=== PATIENT | male | born 1955 | race Caucasian/White ===

== ENCOUNTER 2020-07-10 07:55 | Outpatient (CLI) | payer OTHER ==
[~2020-07-10 07:55] MED LIST: ASPI-650 PO; ATOR40TA78 PO; BISA10SU65 PR; ERGO500017 PO; GABA-826 PO; GABA300C10 PO; OMEP40CA42 PO; POLY17PO5 PO; SENN-177 PO
== END 2020-07-10 23:59 | disposition home or self-care (01) ==
LOC: ROC 07:55
PROVIDERS: ATTEND Radiology Radiation Oncology
DX: Z02.9 Encounter for administrative examinations, unspecified (principal)

== ENCOUNTER 2020-07-31 07:45 | Outpatient (CLI) | payer OTHER | END 2020-07-31 23:59 | disposition home or self-care (01) | LOC: ROC 07:45 | PROVIDERS: ATTEND Radiology Radiation Oncology | DX: C61 Malignant neoplasm of prostate (principal); F41.9 Anxiety disorder, unspecified; F31.9 Bipolar disorder, unspecified; E11.9 Type 2 diabetes mellitus without complications; K21.9 Gastro-esophageal reflux disease without esophagitis; Z86.73 Personal history of transient ischemic attack (TIA), and cerebral infarction without residual deficits | CPT/HCPCS: 99214; G0463 ==

== ENCOUNTER 2020-09-11 07:13 | Outpatient (CLI) | payer OTHER ==
[~2020-09-11 07:13] MED LIST changes: -ASPI-650 PO; +ASPI325T20 PO
== END 2020-09-11 23:59 | disposition home or self-care (01) ==
LOC: ROC 07:13
PROVIDERS: ATTEND Radiology Radiation Oncology
DX: Z08 Encounter for follow-up examination after completed treatment for malignant neoplasm (principal); Z85.46 Personal history of malignant neoplasm of prostate; F41.9 Anxiety disorder, unspecified; F31.9 Bipolar disorder, unspecified; K21.9 Gastro-esophageal reflux disease without esophagitis; E11.9 Type 2 diabetes mellitus without complications
CPT/HCPCS: 99212; G0463

== ENCOUNTER 2020-09-25 07:18 | Outpatient (CLI) | payer OTHER | END 2020-09-25 23:59 | disposition home or self-care (01) | LOC: ROC 07:18 | PROVIDERS: ATTEND Radiology Radiation Oncology | DX: Z08 Encounter for follow-up examination after completed treatment for malignant neoplasm (principal); Z85.46 Personal history of malignant neoplasm of prostate; F41.9 Anxiety disorder, unspecified; F31.9 Bipolar disorder, unspecified; K21.9 Gastro-esophageal reflux disease without esophagitis; E11.9 Type 2 diabetes mellitus without complications | CPT/HCPCS: 99212; G0463 ==

== ENCOUNTER 2021-01-05 19:54 | Inpatient (IN) | payer OTHER ==
[~2021-01-05] VITALS: Ht 180.3 cm; Wt 52.4 kg
[~2021-01-05 19:54] MED LIST changes: -OMEP40CA42 PO; +OMEP40CA8 PO
[2021-01-05] MEDS ORDERED: OMNIPAQUE 350 MG/ML, 100ML BOTTLE ONE (20:00)
--- NOTE | 2021-01-05 20:08 | NUR ---
Code Neuro called @ 1937 Called Neurology @ 2000 Neurology called back @ 2005
--- NOTE | 2021-01-05 20:20 | NUR ---
PT SPEECH IMPROVED AFTER CT SCAN. ERMD AWARE. VSS.
[2021-01-05 20:29] LABS: BASOPHILS % (AUTO) 1 % (0-1); EOSINOPHILS % (AUTO) 5 % (1-7); LYMPHOCYTES % (AUTO) 25 % (22-44); MEAN CORPUSCULAR HEMOGLOBIN 28.4 pg (27.5-34.5); MEAN CORPUSCULAR HGB CONC 33.6 g/dL (33.2-36.2); MEAN PLATELET VOLUME 6.8 fL (7.4-10.4); MONOCYTES % (AUTO) 14 % (2-9); NEUTROPHILS % (AUTO) 55 % (42-75); PLATELET COUNT 269 x10^3/uL (130-400); RED BLOOD COUNT 4.01 x10^6/uL (4.38-5.82); RED CELL DISTRIBUTION WIDTH 13.2 % (9.4-14.8)
[2021-01-05 20:38] LABS: ALBUMIN 2.9 g/dL (3.4-5.0); ANION GAP 7 mmol/L (5-15); CALCIUM 8.5 mg/dL (8.5-10.1); CHLORIDE 102 mmol/L (98-107); CREATININE 0.56 mg/dL (0.7-1.3)
[2021-01-05 20:39] LABS: INTERNATIONAL NORMALIZED RATIO 1.09 (0.93-1.1); PROTHROMBIN TIME 11.6 Seconds (9.6-11.5)
[2021-01-05 20:41] LABS: TROPONIN I < 0.015 ng/mL (0.000-0.045)
--- NOTE | 2021-01-05 20:45 | NUR ---
PT TOLD RN THAT HE IS CURRENTLY [facility].
--- NOTE | 2021-01-05 20:53 | NUR ---
report from judith lynn
--- NOTE | 2021-01-05 21:05 | NUR ---
pt pleasent, cooperative and resting on gurney. no acute distress. watching tv. Attached to all monitors with stable VS
--- NOTE | 2021-01-05 22:00 | NUR ---
PT REPORTS HE HAS BEEN ON A SOFT FOOD/THICKENED LIQUID DIET FOR 5 YEARS WITH A HX OF DIFFICULTY SWALLOWING. FOR THIS REASON I HAVE NOT CONDUCTED A SWALLOW TEST.
--- NOTE | 2021-01-05 22:21 | NUR ---
REPORT TO BRANDEE KENT
[2021-01-05 22:40] VITALS: BP 131/79
[2021-01-05] MEDS ORDERED: ATORVASTATIN 40 MG TABLET PO SCH (23:30)
[2021-01-05] MEDS ORDERED: BISACODYL 10 MG SUPP PR PRN (23:30)
[2021-01-05] MEDS ORDERED: ONDANSETRON 4 MG TABLET PO PRN (23:30)
[2021-01-05] MEDS ORDERED: ACETAMINOPHEN 650 MG/20.3 ML UDC PO PRN (23:30)
[2021-01-05] MEDS: GABAPENTIN 300 MG CAPSULE PO SCH (23:50)
[2021-01-05] MEDS: DOCUSATE 100 MG CAPSULE PO PRN (23:50)
[2021-01-05] MEDS: OMEPRAZOLE 20 MG CAPSULE.DR PO SCH (23:50)
[2021-01-05] MEDS: OXYcodone 5 MG/5 ML ORAL.SOL UDC PO PRN (23:51)
[2021-01-06] VITALS (9 sets, daily range): BP systolic 103–127; BP diastolic 65–76
[2021-01-06 05:44] LABS: CHOL/HDL RATIO 4.3; LDL/HDL RATIO 2.7 (0.5-3.0)
[2021-01-06] MEDS: OXYcodone 5 MG/5 ML ORAL.SOL UDC PO PRN ×2 (09:21→20:30)
[2021-01-06] MEDS: ASPIRIN 81 MG TABLET CHEW PO/NG SCH (09:22)
[2021-01-06] MEDS: GABAPENTIN 300 MG CAPSULE PO SCH ×3 (09:22→20:24)
[2021-01-06] MEDS ORDERED: MORPHINE SULFATE 4 MG/ML, 1ML IVPush PRN (10:00)
[2021-01-06] MEDS ORDERED: ONDANSETRON 2MG/ML, 2ML IVPush PRN (10:00)
[2021-01-06 12:24] LABS: ALANINE AMINOTRANSFERASE 22 U/L (12-78)
[2021-01-06 12:26] LABS: ALKALINE PHOSPHATASE 106 U/L (45-117); BILIRUBIN, DIRECT < 0.1 mg/dL (0.1-0.2); BILIRUBIN,INDIRECT 0.2 mg/dL (0.0-2.0); BILIRUBIN,TOTAL 0.3 mg/dL (0.2-1.0); TOTAL PROTEIN 7.1 g/dL (6.4-8.2)
[2021-01-06] MEDS: PROCHLORPERAZINE 5 MG/ML, 2ML IVPush PRN ×2 (12:26→16:20)
[2021-01-06] MEDS: KETOROLAC 30 MG/1 ML IVPush PRN ×2 (12:26→16:20)
[2021-01-06] MEDS: DIPHENHYDRAMINE 50 MG/ML, 1ML IVPush PRN ×2 (12:27→16:20)
[2021-01-06] MEDS ORDERED: LORazepam 2 MG/ML, 1ML ONE (17:17)
[2021-01-06] MEDS ORDERED: LORazepam 2 MG/ML, 1ML IVPush ONE (17:30)
[2021-01-06] MEDS: ATORVASTATIN 20 MG TABLET PO SCH (20:24)
[2021-01-06] MEDS: OMEPRAZOLE 20 MG CAPSULE.DR PO SCH (20:24)
[2021-01-06] MEDS: POLYETHYLENE GLYCOL 17 GM PACKET PO PRN (20:24)
[2021-01-07 00:55] VITALS: BP 100/65
[2021-01-07 07:30] VITALS: BP 119/77
[2021-01-07] MEDS: ASPIRIN 81 MG TABLET CHEW PO/NG SCH (09:41)
[2021-01-07] MEDS: POLYETHYLENE GLYCOL 17 GM PACKET PO PRN (09:41)
[2021-01-07] MEDS: GABAPENTIN 300 MG CAPSULE PO SCH ×3 (09:41→19:42)
[2021-01-07] MEDS: DOCUSATE 100 MG CAPSULE PO PRN (09:41)
[2021-01-07 12:15] VITALS: BP 103/79
[2021-01-07] MEDS ORDERED: PROPOFOL 10 MG/ML, 20ML ONE (19:00)
[2021-01-07] MEDS ORDERED: FENTANYL PF 250 MCG/5ML ONE (19:01)
[2021-01-07] MEDS ORDERED: PROMETHAZINE 25 MG/ML, 1ML IVPush PRN (19:30)
[2021-01-07] MEDS ORDERED: HYDROmorphone 1 MG/ML, 1ML INJ IVPush PRN (19:30)
[2021-01-07] MEDS ORDERED: ONDANSETRON 2MG/ML, 2ML IVPush PRN (19:30)
[2021-01-07] MEDS ORDERED: MEPERIDINE/PF 25MG/0.5ML IVPush PRN (19:30)
[2021-01-07] MEDS ORDERED: FENTANYL PF 100 MCG/2ML IV PRN (19:30)
[2021-01-07] MEDS ORDERED: ACETAMINOPHEN 325 MG TABLET PO PRN (19:30)
[2021-01-07] MEDS ORDERED: LABETALOL 5MG/ML, 20ML IV PRN (19:30)
[2021-01-07] MEDS ORDERED: hydrALAzine 20 MG/ML, 1ML IV PRN (19:30)
[2021-01-07] MEDS ORDERED: OXYcodone 5 MG/5 ML ORAL.SOL UDC PO PRN (19:30)
[2021-01-07] MEDS ORDERED: MIDAZOLAM 1 MG/ML, 2ML ONE (19:32)
[2021-01-07] MEDS: OMEPRAZOLE 20 MG CAPSULE.DR PO SCH (19:42)
[2021-01-07] MEDS: ATORVASTATIN 20 MG TABLET PO SCH (19:42)
[2021-01-08 01:10] VITALS: BP 116/72
[2021-01-08 05:40] LABS: BASOPHILS % (AUTO) 1 % (0-1); EOSINOPHILS % (AUTO) 3 % (1-7); LYMPHOCYTES % (AUTO) 13 % (22-44); MEAN CORPUSCULAR HEMOGLOBIN 28.9 pg (27.5-34.5); MEAN CORPUSCULAR HGB CONC 34.5 g/dL (33.2-36.2); MEAN PLATELET VOLUME 7.2 fL (7.4-10.4); MONOCYTES % (AUTO) 11 % (2-9); NEUTROPHILS % (AUTO) 71 % (42-75); PLATELET COUNT 294 x10^3/uL (130-400); RED BLOOD COUNT 4.49 x10^6/uL (4.38-5.82)
[2021-01-08 05:45] LABS: ANION GAP 4 mmol/L (5-15); CALCIUM 9.1 mg/dL (8.5-10.1); CHLORIDE 106 mmol/L (98-107)
[2021-01-08 05:47] LABS: CREATININE 0.56 mg/dL (0.7-1.3)
[2021-01-08 07:30] VITALS: BP 102/70
[2021-01-08] MEDS: GABAPENTIN 300 MG CAPSULE PO SCH ×2 (09:00→18:27)
[2021-01-08] MEDS: ASPIRIN 81 MG TABLET CHEW PO/NG SCH (09:00)
--- NOTE | 2021-01-08 10:00 | NUR ---
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
[2021-01-08] MEDS: DOCUSATE 100 MG CAPSULE PO PRN (11:11)
[2021-01-08] MEDS ORDERED: SENNA/DOCUSATE TABLET ONE (11:15)
[2021-01-08] MEDS ORDERED: SENNA/DOCUSATE TABLET PO SCH (12:00)
[2021-01-08 12:14] VITALS: BP 126/82
[2021-01-08 13:17] VITALS: BP 104/70
[2021-01-08] MEDS ORDERED: ATOR20TA37 PO (15:07)
[2021-01-08] MEDS ORDERED: ACET-1600 PO (15:07)
[2021-01-08] MEDS ORDERED: ASPI-963 PO/NG (15:07)
[2021-01-08] MEDS ORDERED: SENN-211 PO (15:08)
[2021-01-08] MEDS ORDERED: CLOP75TA52 PO (15:13)
[2021-01-08 18:55] VITALS: BP 108/68
[2021-01-09] MEDS ORDERED: SENNA/DOCUSATE TABLET PO SCH (11:00)
== END 2021-01-08 20:26 | disposition home or self-care (01) | DRG 158 ==
LOC: ED 22:14 → EDIP 22:16 → 4EST 22:53
PROVIDERS: ADMIT Family Medicine; ATTEND Internal Medicine
PROC: 0RSCXZZ Reposition Right Temporomandibular Joint, External Approach (ICD-10-PCS; principal; 2021-01-07 19:30)
DX: S03.01XA Dislocation of jaw, right side, initial encounter (principal); I69.351 Hemiplegia and hemiparesis following cerebral infarction affecting right dominant side; Z20.822 Contact with and (suspected) exposure to COVID-19; F14.10 Cocaine abuse, uncomplicated; F15.10 Other stimulant abuse, uncomplicated; F31.9 Bipolar disorder, unspecified; F41.1 Generalized anxiety disorder; I10 Essential (primary) hypertension; Z79.82 Long term (current) use of aspirin; Z85.46 Personal history of malignant neoplasm of prostate; W01.0XXA Fall on same level from slipping, tripping and stumbling without subsequent striking against object, initial encounter; Y93.89 Activity, other specified; Y92.89 Other specified places as the place of occurrence of the external cause; Y99.8 Other external cause status; I65.02 Occlusion and stenosis of left vertebral artery; I65.23 Occlusion and stenosis of bilateral carotid arteries
CPT/HCPCS: 36415; 70100; 70450; 70486; 70496; 70498; 70551; 80047; 80048; 80061; 80076; 82040; 83735; 84100; 84484; 85025; 85610; 85730; 87635; 93005; 93306; 93880; 99285; G0378; J1885; J2250; J2405; J2704; J3010; Q9967; J0780; J1200; J2270

== ENCOUNTER 2021-01-13 08:03 | Inpatient (IN) | payer MEDICAID, OTHER ==
[~2021-01-13] VITALS: Ht 180.3 cm; Wt 60.3 kg
[~2021-01-13 08:03] MED LIST changes: +ACET-1600 PO; +ASPI-963 PO/NG; +ATOR20TA37 PO; +CLOP75TA52 PO; +SENN-211 PO
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
[2021-01-13] MEDS ORDERED: SODIUM CHLORIDE FLUSH 10ML SYR IVF ONE (09:00)
[2021-01-13] MEDS ORDERED: SODIUM CHLORIDE 0.9% 1,000 ML IV ONE (09:00)
--- NOTE | 2021-01-13 09:04 | NUR ---
XRAY AT BS
[2021-01-13 09:21] LABS: ALANINE AMINOTRANSFERASE 43 U/L (12-78); ALBUMIN 3.9 g/dL (3.4-5.0); ANION GAP 10 mmol/L (5-15); BASOPHILS % (AUTO) 1 % (0-1); CALCIUM 9.9 mg/dL (8.5-10.1); CHLORIDE 107 mmol/L (98-107); CREATININE 0.81 mg/dL (0.7-1.3); EOSINOPHILS % (AUTO) 2 % (1-7); LYMPHOCYTES % (AUTO) 23 % (22-44); MEAN CORPUSCULAR HEMOGLOBIN 28.4 pg (27.5-34.5); MEAN PLATELET VOLUME 7.3 fL (7.4-10.4); MONOCYTES % (AUTO) 10 % (2-9); NEUTROPHILS % (AUTO) 64 % (42-75); PLATELET COUNT 357 x10^3/uL (130-400); RED BLOOD COUNT 5.17 x10^6/uL (4.38-5.82); RED CELL DISTRIBUTION WIDTH 13.3 % (9.4-14.8)
[2021-01-13 09:24] LABS: ALKALINE PHOSPHATASE 115 U/L (45-117); BILIRUBIN,TOTAL 0.4 mg/dL (0.2-1.0); TOTAL PROTEIN 8.7 g/dL (6.4-8.2)
--- NOTE | 2021-01-13 09:58 | NUR ---
PT SITTING ON GURNEY, WATCHING TV. VSS/NADN. IVF INFUSING. CALL LIGHT WITHIN REACH. NO NEEDS AT THIS TIME
[2021-01-13] MEDS ORDERED: ONDANSETRON 2MG/ML, 2ML IVPush ONE (10:00)
[2021-01-13] MEDS ORDERED: PANTOPRAZOLE 40 MG IV IVPush ONE (10:00)
[2021-01-13] MEDS ORDERED: ONDANSETRON 2MG/ML, 2ML ONE (10:09)
[2021-01-13] MEDS ORDERED: PANTOPRAZOLE 40 MG IV ONE (10:09)
--- NOTE | 2021-01-13 10:22 | NUR ---
Pt to be admitted to [facility], room 347. Report called to ROBI.
[2021-01-13 10:41] VITALS: BP 123/78
[2021-01-13 10:46] VITALS: BP 123/78
[2021-01-13 14:26] VITALS: BP 135/86
[2021-01-13] MEDS ORDERED: LORazepam 2 MG/ML, 1ML IVPush PRN (14:30)
[2021-01-13] MEDS ORDERED: ACETAMINOPHEN 325 MG TABLET PO PRN (14:30)
[2021-01-13] MEDS ORDERED: ONDANSETRON 2MG/ML, 2ML IVPush PRN (14:30)
[2021-01-13] MEDS ORDERED: ENALAPRILAT 1.25 MG/ML, 2ML IVPush PRN (14:30)
[2021-01-13] MEDS ORDERED: BISACODYL 10 MG SUPP PR PRN (14:30)
[2021-01-13] MEDS: D5%-LR+KCL 20MEQ 1,000 ML IV SCH (15:54)
[2021-01-13 20:06] VITALS: BP 134/79
[2021-01-13 23:42] LABS: MICROSCOPIC NOT IND
[2021-01-14] MEDS: D5%-LR+KCL 20MEQ 1,000 ML IV SCH ×3 (00:44→22:38)
[2021-01-14 00:45] VITALS: BP 123/69
[2021-01-14 06:05] LABS: BASOPHILS % (AUTO) 1 % (0-1); EOSINOPHILS % (AUTO) 7 % (1-7); LYMPHOCYTES % (AUTO) 33 % (22-44); MEAN CORPUSCULAR HEMOGLOBIN 28.6 pg (27.5-34.5); MEAN CORPUSCULAR HGB CONC 33.7 g/dL (33.2-36.2); MEAN PLATELET VOLUME 7.3 fL (7.4-10.4); MONOCYTES % (AUTO) 10 % (2-9); NEUTROPHILS % (AUTO) 50 % (42-75); PLATELET COUNT 257 x10^3/uL (130-400); RED BLOOD COUNT 4.15 x10^6/uL (4.38-5.82)
[2021-01-14 06:16] LABS: ALBUMIN 2.9 g/dL (3.4-5.0); ANION GAP 4 mmol/L (5-15); CALCIUM 8.7 mg/dL (8.5-10.1); CHLORIDE 109 mmol/L (98-107)
[2021-01-14 06:28] LABS: ALANINE AMINOTRANSFERASE 33 U/L (12-78); ALKALINE PHOSPHATASE 82 U/L (45-117); BILIRUBIN,TOTAL 0.5 mg/dL (0.2-1.0); CREATININE 0.63 mg/dL (0.7-1.3); TOTAL PROTEIN 6.3 g/dL (6.4-8.2)
[2021-01-14 06:40] VITALS: BP 109/66
[2021-01-14] MEDS: PANTOPRAZOLE 40 MG IV IVPush SCH (07:38)
[2021-01-14] MEDS ORDERED: FENTANYL PF 100 MCG/2ML ONE ×2 (09:41→09:56)
[2021-01-14] MEDS ORDERED: PROPOFOL 10 MG/ML, 20ML ONE (09:49)
[2021-01-14] MEDS ORDERED: ACETAMINOPHEN 325 MG TABLET PO PRN (10:30)
[2021-01-14] MEDS ORDERED: PROMETHAZINE 25 MG/ML, 1ML IVPush PRN (10:30)
[2021-01-14] MEDS ORDERED: ONDANSETRON 2MG/ML, 2ML IVPush PRN (10:30)
[2021-01-14] MEDS ORDERED: FENTANYL PF 100 MCG/2ML IV PRN (10:30)
[2021-01-14] MEDS ORDERED: hydrALAzine 20 MG/ML, 1ML IV PRN (10:30)
[2021-01-14] MEDS ORDERED: LORazepam 2 MG/ML, 1ML IVPush PRN (10:30)
[2021-01-14] MEDS ORDERED: METHOCARBAMOL 1,000 MG in DEXTROSE 5% 100 ML IV PRN (10:30)
[2021-01-14] MEDS ORDERED: HYDROmorphone 1 MG/ML, 1ML INJ IVPush PRN (10:30)
[2021-01-14] MEDS ORDERED: OXYcodone 5 MG/5 ML ORAL.SOL UDC PO PRN (10:30)
[2021-01-14] MEDS ORDERED: MEPERIDINE/PF 25MG/0.5ML IVPush PRN (10:30)
[2021-01-14] MEDS ORDERED: EPHEDRINE 50 MG/ML, 1ML IVPush PRN (10:30)
[2021-01-14] MEDS ORDERED: LABETALOL 5MG/ML, 20ML IV PRN (10:30)
[2021-01-14] MEDS: SUCRALFATE 1 GM/10 ML UDC PO SCH ×4 (11:00→20:02)
[2021-01-14 12:40] VITALS: BP 126/71
[2021-01-14 19:27] VITALS: BP 108/67
[2021-01-15 03:20] VITALS: BP 101/60
[2021-01-15 04:42] LABS: BASOPHILS % (AUTO) 1 % (0-1); EOSINOPHILS % (AUTO) 5 % (1-7); LYMPHOCYTES % (AUTO) 19 % (22-44); MEAN CORPUSCULAR HEMOGLOBIN 28.8 pg (27.5-34.5); MEAN CORPUSCULAR HGB CONC 34.2 g/dL (33.2-36.2); MEAN PLATELET VOLUME 7.3 fL (7.4-10.4); MONOCYTES % (AUTO) 8 % (2-9); NEUTROPHILS % (AUTO) 67 % (42-75); PLATELET COUNT 225 x10^3/uL (130-400); RED BLOOD COUNT 4.02 x10^6/uL (4.38-5.82)
[2021-01-15 04:53] LABS: ANION GAP 4 mmol/L (5-15); CALCIUM 8.8 mg/dL (8.5-10.1); CHLORIDE 106 mmol/L (98-107); CREATININE 0.56 mg/dL (0.7-1.3)
[2021-01-15] MEDS: SUCRALFATE 1 GM/10 ML UDC PO SCH ×3 (06:31→16:00)
[2021-01-15 06:52] VITALS: BP 104/61
[2021-01-15] MEDS: PANTOPRAZOLE 40 MG IV IVPush SCH (08:17)
[2021-01-15] MEDS: D5%-LR+KCL 20MEQ 1,000 ML IV SCH (09:50)
[2021-01-15 12:05] VITALS: BP 100/60
[2021-01-15] MEDS ORDERED: PANT40TA3 PO (14:49)
[2021-01-15] MEDS ORDERED: CLOP75TA52 PO (14:49)
[2021-01-15] MEDS ORDERED: SUCR1ORA5 PO (14:49)
[2021-01-15] MEDS ORDERED: ASPI81TA45 PO (14:49)
== END 2021-01-15 18:33 | disposition home or self-care (01) | DRG 243 ==
LOC: ED 10:03 → 3N 10:38
PROVIDERS: ADMIT Hospitalist; ATTEND Internal Medicine
PROC: 0DB68ZX Excision of Stomach, Via Natural or Artificial Opening Endoscopic, Diagnostic (ICD-10-PCS; 2021-01-14)
PROC: 0D738ZZ Dilation of Lower Esophagus, Via Natural or Artificial Opening Endoscopic (ICD-10-PCS; principal; 2021-01-14 08:30)
DX: K22.2 Esophageal obstruction (principal); E46 Unspecified protein-calorie malnutrition; I69.351 Hemiplegia and hemiparesis following cerebral infarction affecting right dominant side; R13.14 Dysphagia, pharyngoesophageal phase; Z20.822 Contact with and (suspected) exposure to COVID-19; E78.5 Hyperlipidemia, unspecified; E86.0 Dehydration; E87.6 Hypokalemia; F31.9 Bipolar disorder, unspecified; F41.1 Generalized anxiety disorder; R94.4 Abnormal results of kidney function studies; I10 Essential (primary) hypertension; Z85.46 Personal history of malignant neoplasm of prostate; Z86.19 Personal history of other infectious and parasitic diseases; Z68.1 Body mass index [BMI] 19.9 or less, adult; Z79.899 Other long term (current) drug therapy
CPT/HCPCS: 36415; 71045; 80048; 80053; 81003; 83735; 84100; 84439; 84443; 85025; 87635; 88305; 96374; 96375; 99285; G0378; J2405; J2704; J3010; C1725; C9113; J3480; J7030

== ENCOUNTER 2021-01-19 07:29 | Outpatient (CLI) | payer OTHER ==
[~2021-01-19 07:29] MED LIST changes: +ASPI81TA45 PO; +PANT40TA3 PO; +SUCR1ORA5 PO
== END 2021-01-19 23:59 | disposition home or self-care (01) ==
LOC: ROC 07:29
PROVIDERS: ATTEND Radiology Radiation Oncology
DX: Z02.9 Encounter for administrative examinations, unspecified (principal)

== ENCOUNTER 2021-01-19 17:19 | Emergency (ER) | payer OTHER ==
[~2021-01-19] VITALS: Ht 180.3 cm; Wt 50.0 kg
--- NOTE | 2021-01-19 17:21 | NUR ---
pt brought in by EMS for C/O of inability to swallow and Right jaw pain. pt also states that he feel in the shower on his right shoulder. EMS reports GSC of 15. Changed into hospital gown and attached to monitors.
--- NOTE | 2021-01-19 17:41 | NUR ---
Lab at bedside.
--- NOTE | 2021-01-19 17:44 | NUR ---
xray at bedside.
[2021-01-19 17:51] LABS: BASOPHILS % (AUTO) 2 % (0-1); EOSINOPHILS % (AUTO) 8 % (1-7); LYMPHOCYTES % (AUTO) 21 % (22-44); MEAN CORPUSCULAR HEMOGLOBIN 28.3 pg (27.5-34.5); MEAN PLATELET VOLUME 7.2 fL (7.4-10.4); MONOCYTES % (AUTO) 14 % (2-9); NEUTROPHILS % (AUTO) 55 % (42-75); PLATELET COUNT 231 x10^3/uL (130-400); RED CELL DISTRIBUTION WIDTH 13.1 % (9.4-14.8)
--- NOTE | 2021-01-19 17:51 | NUR ---
pt out of room to xray
[2021-01-19 18:01] LABS: ALBUMIN 2.9 g/dL (3.4-5.0); ANION GAP 7 mmol/L (5-15); CALCIUM 8.4 mg/dL (8.5-10.1); CHLORIDE 103 mmol/L (98-107); CREATININE 0.57 mg/dL (0.7-1.3)
--- NOTE | 2021-01-19 18:02 | NUR ---
pt returned from xray
--- NOTE | 2021-01-19 18:55 | NUR ---
Report given to Alex
[2021-01-19 19:29] VITALS: BP 134/78
== END 2021-01-19 19:32 | disposition home or self-care (01) ==
LOC: ED 17:35
DX: M26.621 Arthralgia of right temporomandibular joint (principal); R94.31 Abnormal electrocardiogram [ECG] [EKG]; I10 Essential (primary) hypertension; Z86.73 Personal history of transient ischemic attack (TIA), and cerebral infarction without residual deficits
CPT/HCPCS: 36415; 70100; 80048; 82040; 85025; 93005; 99285

== ENCOUNTER 2021-02-21 07:03 | Outpatient (CLI) | payer OTHER | END 2021-02-21 23:59 | disposition home or self-care (01) | LOC: ROC 07:03 | PROVIDERS: ATTEND Radiology Radiation Oncology | DX: Z51.0 Encounter for antineoplastic radiation therapy (principal); C61 Malignant neoplasm of prostate; F41.9 Anxiety disorder, unspecified; F31.9 Bipolar disorder, unspecified; I10 Essential (primary) hypertension; E86.0 Dehydration; E87.6 Hypokalemia; E78.5 Hyperlipidemia, unspecified; Z79.899 Other long term (current) drug therapy; Z79.82 Long term (current) use of aspirin | CPT/HCPCS: 76942; 77332 ==

== ENCOUNTER 2021-03-12 07:33 | Outpatient (CLI) | payer OTHER | END 2021-03-12 23:59 | disposition home or self-care (01) | LOC: ROC 07:33 | PROVIDERS: ATTEND Radiology Radiation Oncology | DX: C61 Malignant neoplasm of prostate (principal); I10 Essential (primary) hypertension; E78.5 Hyperlipidemia, unspecified; F41.9 Anxiety disorder, unspecified; F31.9 Bipolar disorder, unspecified; Z79.82 Long term (current) use of aspirin; Z79.899 Other long term (current) drug therapy; Z86.73 Personal history of transient ischemic attack (TIA), and cerebral infarction without residual deficits | CPT/HCPCS: 99213; G0463 ==